=== PATIENT | male | born 1960 | race Caucasian/White ===

== ENCOUNTER 2022-05-05 13:17 | Outpatient (CLI) | payer BC, SELFPAY ==
[2022-05-05 21:50] LABS: Albumin* 4.6 g/dL (3.3-5.0); Chloride* 101 mmol/L (96-114); Sodium* 133 mmol/L (135-149)
[2022-05-05 21:51] LABS: Potassium* 4.9 mmol/L (3.6-5.1)
[2022-05-05 21:52] LABS: Cholesterol* 191 mg/dL (90-199)
[2022-05-05 21:53] LABS: Alanine Aminotransferase* 42 U/L (4-50); Alkaline Phosphatase* 79 U/L (40-150); Aspartate Amino Transferase* 44 U/L (12-35); Bilirubin Total* 0.8 mg/dL (0.1-1.5); Blood Urea Nitrogen* 17 mg/dL (7-30); Calcium* 9.3 mg/dL (8.4-10.6); Carbon Dioxide* 26 mmol/L (20-32); Glucose* 107 mg/dL (60-115); Total Protein* 7.8 g/dL (6.0-8.3); Triglycerides* 212 mg/dL (40-149)
[2022-05-05 21:54] LABS: HDL Cholesterol* 73 mg/dL (>=40); LDL Cholesterol Calculated 76 mg/dL (<100)
[2022-05-05 22:10] LABS: Creatinine* 0.9 mg/dL (0.5-1.5); Estimated Glomerular Filt Rate 98 ml/min
[2022-05-05 22:39] LABS: PSA Screen* 1.76 ng/mL (0.10-4.00)
[2022-05-08 10:46] LABS: Testosterone, Adult Male 465 ng/dL (300-890)
== END 2022-05-05 13:18 | disposition home or self-care (01) ==
PROVIDERS: PCP Family Medicine; Visit Provider Family Medicine
DX: Z00.00 Encounter for general adult medical examination without abnormal findings (principal); E78.00 Pure hypercholesterolemia, unspecified; I10 Essential (primary) hypertension; R68.82 Decreased libido; Z12.5 Encounter for screening for malignant neoplasm of prostate
CPT/HCPCS: 80053; 80061; 84153; 84403

== ENCOUNTER 2022-10-14 09:56 | Outpatient (CLI) | payer BC, SELFPAY | END 2022-10-14 09:57 | disposition home or self-care (01) | PROVIDERS: PCP Family Medicine; Visit Provider Family Medicine | DX: E87.1 Hypo-osmolality and hyponatremia (principal); E87.6 Hypokalemia; R68.82 Decreased libido; I10 Essential (primary) hypertension | CPT/HCPCS: 80076 ==

== ENCOUNTER 2023-04-25 10:05 | Outpatient (CLI) | payer BC, SELFPAY | END 2023-04-25 10:06 | disposition home or self-care (01) | PROVIDERS: PCP Family Medicine; Visit Provider Family Medicine | DX: R79.89 Other specified abnormal findings of blood chemistry (principal); E87.1 Hypo-osmolality and hyponatremia; E87.6 Hypokalemia | CPT/HCPCS: 80076; 84443 ==

== ENCOUNTER 2023-05-12 09:40 | Outpatient (CLI) | payer BC, SELFPAY | END 2023-05-12 09:41 | disposition home or self-care (01) | LOC: RAD 09:42 | PROVIDERS: PCP Family Medicine; Visit Provider Family Medicine | DX: R00.2 Palpitations (principal) | CPT/HCPCS: 93306 ==

== ENCOUNTER 2023-08-18 08:53 | Outpatient (CLI) | payer BC, SELFPAY | END 2023-08-18 08:54 | disposition home or self-care (01) | PROVIDERS: PCP Family Medicine; Visit Provider Family Medicine | DX: Z00.00 Encounter for general adult medical examination without abnormal findings (principal); E78.00 Pure hypercholesterolemia, unspecified; I10 Essential (primary) hypertension; R68.82 Decreased libido; E87.6 Hypokalemia; E87.1 Hypo-osmolality and hyponatremia; R79.89 Other specified abnormal findings of blood chemistry | CPT/HCPCS: 80053; 80061; 84270; 84402; 84403; G0103 ==

== ENCOUNTER 2024-09-30 08:05 | Outpatient (CLI) | payer BC, SELFPAY | END 2024-09-30 08:06 | disposition home or self-care (01) | LOC: NFLDREF 10-01 14:39 | PROVIDERS: PCP Family Medicine; Referring Provider Family Medicine; Visit Provider Family Medicine | DX: I10 Essential (primary) hypertension (principal); E78.00 Pure hypercholesterolemia, unspecified; R79.89 Other specified abnormal findings of blood chemistry; N40.0 Benign prostatic hyperplasia without lower urinary tract symptoms; F10.10 Alcohol abuse, uncomplicated; Z12.5 Encounter for screening for malignant neoplasm of prostate | CPT/HCPCS: 80053; 80061; 85027; G0103 ==